=== PATIENT | female | born 1995 | race Caucasian/White ===

== ENCOUNTER 2018-02-06 12:17 | Outpatient (CLI) | payer MEDICAID ==
--- NOTE | 2018-02-06 17:43 | XRAY Report ---
Procedure Date: 02/06/2018 Accession Number: [id number] / [id number] Procedure: XRS - Toe(s) RT CPT Code: FULL RESULT: EXAM: TOES LEFT DATE: 02/06/2018 12:27 PM CLINICAL HISTORY: TOE PAIN, left great toe TECHNIQUE: 3 views COMPARISON: None FINDINGS: 3 views of the left toes show no evidence of fracture, malalignment, joint space narrowing, soft tissue swelling or radiopaque foreign body. IMPRESSION: Negative left toes with particular reference to the great toe.
== END 2018-02-06 12:18 | disposition home or self-care (01) ==
LOC: DI.S 12:17
PROVIDERS: ATTEND Nurse Practitioner Family
DX: M79.674 Pain in right toe(s) (principal)
CPT/HCPCS: 73660

== ENCOUNTER 2018-10-15 08:00 | Outpatient (CLI) | payer MEDICAID, OTHER | END 2018-10-15 23:59 | disposition home or self-care (01) | LOC: LAB.R 08:00 | PROVIDERS: ATTEND Registered Nurse | DX: Z30.430 Encounter for insertion of intrauterine contraceptive device (principal) | CPT/HCPCS: 87491; 87591 ==